=== PATIENT | male | born 2005 | race Caucasian/White ===

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

== ENCOUNTER 2024-05-08 10:34 | Emergency (ER) | payer BC, MEDICAID ==
[~2024-05-08] VITALS: Ht 180.3 cm; Wt 68.0 kg
[~2024-05-08 10:34] MED LIST: LOM2.5 PO; ONDA-8 TL
[2024-05-08 10:38] VITALS: BP_SYST 134; PULSE 93; RESP 20; TEMP 97.8; O2SAT 99
[2024-05-08] MEDS: MORPHINE 4 MG INJ. 4 MG/ML VIAL IVP ONE (11:09)
[2024-05-08] MEDS: ONDANSETRON HCL 4 MG/2 ML VIAL IVP ONE (11:09)
[2024-05-08] MEDS: ASPIRIN 325 MG TABLET (ECOTRIN) PO ONE (11:09)
[2024-05-08 11:13] LABS: BASOPHILS % (AUTO) 0.6 % (0.0-2.0); EOSINOPHILS % (AUTO) 0.3 % (0.0-4.0); HEMATOCRIT 47.4 % (36-54); HEMOGLOBIN 16.4 g/dL (14.0-18.0); LYMPHOCYTES # (AUTO) 1.4 K/uL (1.0-5.5); LYMPHOCYTES % (AUTO) 18.9 % (20.5-51.5); MEAN CORPUSCULAR HEMOGLOBIN 32 pg (27-31); MEAN CORPUSCULAR HGB CONC 35 % (32-36); MEAN CORPUSCULAR VOLUME 92 fL (79.0-98.0); MONOCYTES # (AUTO) 0.5 K/uL (0.0-1.0); MONOCYTES % (AUTO) 6.1 % (1.7-9.3); NEUTROPHILS # (AUTO) 5.5 K/uL (1.8-7.7); NEUTROPHILS % (AUTO) 74.1 % (40.0-70.0); PLATELET COUNT (AUTO) 180 K/uL (130-430); RED BLOOD CELL COUNT(AUTO) 5.15 MIL/uL (4.2-6.2); RED CELL DISTRIBUTION WIDTH 13.6 % (9.0-15.0); WHITE BLOOD COUNT (AUTO) 7.5 K/uL (4.8-10.8)
[2024-05-08 11:20] LABS: ANION GAP 10 (5-15); CARBON DIOXIDE 28 mmol/L (23-29); CHLORIDE 103 mmol/L (98-107); CREATININE 1.02 mg/dL (0.55-1.30); GFR AFRICAN AMERICAN 119 mL/min (>90); GFR NON AFRICAN-AMERICAN 98 mL/min (>90); GLUCOSE 88 mg/dL (74-106); POTASSIUM 4.2 mmol/L (3.5-5.1); SODIUM SERUM 141 mmol/L (136-145); UREA NITROGEN, BLOOD 11 mg/dL (8-21)
[2024-05-08 11:21] LABS: ALCOHOL, BLOOD < 3 mg/dL (<10)
[2024-05-08 12:01] LABS: BARBITURATE, URINE NEGATIVE (NEG <=200); BENZODIAZEPINE, URINE NEGATIVE (NEG <=150); COCAINE, URINE NEGATIVE (NEG <=150); METHAMPHETAMINES SCREEN,URINE NEGATIVE (NEG <=500); PHENCYCLIDINE SCREEN,URINE NEGATIVE (NEG <=25); UR TRICYCLIC ANTIDEPRESSANTS NEGATIVE (NEG <=300); URINE AMPHETAMINE NEGATIVE (NEG <=500); URINE METHADONE NEGATIVE (NEG <=200); URINE OXYCODONE SCREEN NEGATIVE (NEG <=100)
[2024-05-08 12:02] LABS: CANNABINOID, URINE POSITIVE (NEG <=50); OPIATE, URINE POSITIVE (NEG <=100)
[2024-05-08 12:23] VITALS: BP_SYST 134; PULSE 93; RESP 20; TEMP 97.8; O2SAT 99
== END 2024-05-08 12:22 | disposition left against medical advice (07) ==
LOC: SED 10:34
DX: R07.89 Other chest pain (principal); F17.200 Nicotine dependence, unspecified, uncomplicated; F12.90 Cannabis use, unspecified, uncomplicated; Z79.899 Other long term (current) drug therapy
CPT/HCPCS: 99285; 96374; 71045; 96375; 80307; 80048; 83880; 85025; 85379; 84484; 36415; 93005; G0482; J2405; J2270